=== PATIENT | female | born 1985 | race Caucasian/White ===

== ENCOUNTER → 2016-10-06 | Outpatient (REF) | payer OTHER | LOC: M SFHCWAGY 14:55 | PROVIDERS: ATTEND Family Medicine | DX: Z11.3 Encounter for screening for infections with a predominantly sexual mode of transmission (principal); Z12.4 Encounter for screening for malignant neoplasm of cervix | CPT/HCPCS: 87491; 87591; G0123 ==

== ENCOUNTER → 2017-11-23 | Outpatient (REF) | payer OTHER | LOC: M SFHCWAGY 13:59 | DX: Z12.4 Encounter for screening for malignant neoplasm of cervix (principal); Z11.3 Encounter for screening for infections with a predominantly sexual mode of transmission ==

== ENCOUNTER → 2018-11-29 | Outpatient (REF) | payer OTHER | LOC: M SFHCWAGY 13:35 | PROVIDERS: ATTEND Family Medicine | DX: Z12.4 Encounter for screening for malignant neoplasm of cervix (principal) ==

== ENCOUNTER → 2021-01-04 | Outpatient (CLI) | payer BC, OTHER ==
--- NOTE | 2021-01-04 18:07 | REP ---
INDICATION: PAIN IN LEFT HIP injury October 2019 in January 2020, pain COMPARISON: None. TECHNIQUE: Coronal T1, STIR through the pelvis, axial, coronal, sagittal sequences left hip. Study is particle to evaluate muscular structures, the patient's order states rule out gluteus medius tear. FINDINGS: The visualized osseous structures demonstrate normal bone marrow signal. There is no bone marrow edema or occult fracture. There is no evidence of avascular necrosis. Labrum demonstrates no gross evidence of a tear. Gluteal muscles demonstrate normal signal with no evidence of tear. There is no paralabral cyst. Other surrounding soft tissue structures demonstrate no abnormal signal. There is no joint effusion. The visualized intrapelvic structures are unremarkable. Trace free fluid in the pelvis is likely physiologic. IMPRESSION: Negative MRI left hip as discussed above. <Electronically signed by Yomi Allen > 01/04/21 [id number]
== END ==
LOC: M PLARAD 13:55
PROVIDERS: ATTEND Orthopaedic Surgery
DX: M25.552 Pain in left hip (principal)

== ENCOUNTER → 2021-10-12 | Outpatient (CLI) | payer BC, OTHER ==
[2021-10-12 10:06] LABS: PLATELET COUNT, AUTOMATED 199 10^3/uL (150-450)
[2021-10-12 10:18] LABS: INR 0.98; PROTHROMBIN TIME 13.4 SECONDS (12.7-14.5)
[2021-10-12 10:19] LABS: PARTIAL THROMBOPLASTIN TIME 28.6 SECONDS (25.9-37.0)
[2021-10-12 10:32] LABS: HCG, SERUM QUALITATIVE NEGATIVE (NEGATIVE)
== END ==
LOC: M LAB 08:55
PROVIDERS: ATTEND Physician Assistant
DX: M54.16 Radiculopathy, lumbar region (principal)

== ENCOUNTER → 2024-11-28 | Outpatient (REF) | payer BC, OTHER | LOC: M LABDRAWC 08:03 | PROVIDERS: ATTEND Student in an Organized Health Care Education/Training Program | DX: N93.9 Abnormal uterine and vaginal bleeding, unspecified (principal) ==

== ENCOUNTER → 2025-06-23 | Outpatient (CLI) | payer BC | LOC: M RAD 06:36 | PROVIDERS: ATTEND Physical Medicine & Rehabilitation | DX: M54.2 Cervicalgia (principal) ==